=== PATIENT | male | born 2000 | race Caucasian/White ===

== ENCOUNTER 2020-05-05 08:44 | Emergency (ER) | payer BC, MEDICAID ==
[~2020-05-05] VITALS: Ht 61 cm; Wt 70.5 kg
[2020-05-05] MEDS ORDERED: BENZ-38 PO (09:04)
[2020-05-05] MEDS ORDERED: AZIT250T2 PO (09:04)
[2020-05-05] MEDS ORDERED: ALBU6.7H9 INH (09:04)
[2020-05-05 09:17] VITALS: BP 115/79
== END 2020-05-05 09:32 | disposition home or self-care (01) ==
LOC: ER 08:44
DX: J40 Bronchitis, not specified as acute or chronic (principal); Z79.899 Other long term (current) drug therapy
CPT/HCPCS: 99283